=== PATIENT | male | born 2005 ===

== ENCOUNTER → 2025-05-05 10:53 | Outpatient (REF) | payer OTHER, SELFPAY | LOC: REG 10:53 | PROVIDERS: ATTENDING PHYSICIAN Nurse Practitioner Family | DX: Z23 Encounter for immunization (principal) | CPT/HCPCS: 36415; 86480; 86706 ==

== ENCOUNTER → 2025-05-15 14:58 | Outpatient (REF) | payer OTHER, SELFPAY | LOC: RAD 14:58 | PROVIDERS: ATTENDING PHYSICIAN Internal Medicine Rheumatology; FAMILY PHYSICIAN Family Medicine | DX: M25.50 Pain in unspecified joint (principal) | CPT/HCPCS: 73110; 73523; 73565 ==